=== PATIENT | female | born 1980 | race Caucasian/White ===

== ENCOUNTER 2017-06-18 07:21 | Day surgery (SDC) | payer MEDICAID ==
[~2017-06-18 07:21] MED LIST: Bupivacaine 0.5% 50 ML MDV ONE; Lidocaine 1% with EPINEPHrine 1:100,000 50 ML MDV ONE
[2017-06-18] MEDS ORDERED: Midazolam 1 MG/ML 2 ML SDV ONE (08:34)
[2017-06-18] MEDS ORDERED: fentaNYL 100 MCG/2 ML SDV ONE (08:34)
[2017-06-18] MEDS ORDERED: Propofol 200 MG/20 ML SDV ONE ×2 (08:34→09:15)
[2017-06-18] MEDS ORDERED: Bacitracin Oint 1 GM U/D Packet ONE (09:27)
[2017-06-18] MEDS ORDERED: Dextrose 5%-Lactated Ringers 1,000 ML IV SCH (09:30)
[2017-06-18 11:03] VITALS: BP 127/62
--- NOTE | 2017-06-18 15:08 | OR ---
DATE OF PROCEDURE: 06/18/2017 PREOPERATIVE DIAGNOSIS: 2 cm crown of scalp and 2.5 cm right occipital scalp masses consistent with cysts. POSTOPERATIVE DIAGNOSIS: 2.5 cm crown of scalp and 3 cm right occipital scalp masses. PROCEDURE: Excision of 2.5 cm crown of scalp and 3 cm right occipital scalp masses. SURGEON: Herrera Winchester MD ANESTHESIA: IV anesthesia with monitored anesthesia care. INDICATIONS: This 36-year-old white female has 2 masses in her scalp. One is up in the crown and the other in the right occipital area. She is here to have them excised. I counseled her for excision of these two lesions including risks and alternatives , and she gave her informed consent to proceed. These ultimately were shown to measure 2.5 cm for the crown and 3 cm for the right occipital area. DESCRIPTION OF PROCEDURE: The patient was placed prone on the operating room table. IV anesthesia was administered by the Anesthesia Service. Some small amount of hair was excised from both mass areas. The areas were prepped and draped in the usual sterile fashion. Time-out was held. Lidocaine 1% with epinephrine in a 50:50 mix with 0.5% Marcaine was infiltrated about the crown mass first. An elliptical incision was then made to remove this. It is consistent with a cyst. It measured 2.5 cm in diameter. The incision was closed with a running stitch of 3-0 Prolene. The specimen was sent to Pathology. Next, the right occipital mass was excised. Lidocaine 1% with epinephrine in a 50:50 mix with 0.5% Marcaine was infiltrated about this mass. This mass was then excised using an elliptical incision. The mass was noted to measure 3 cm in diameter. This was also sent to the laboratory. The incision was closed with a running stitch of 3-0 Prolene with an occasional vertical mattress stitch placed to achieve good wound edge approximation. Bacitracin was applied to both incisions. She tolerated the procedure well and was brought to recovery room in good condition. Herrera Winchester MD /[id number] MTDD
== END 2017-06-18 11:17 | disposition home or self-care (01) ==
LOC: JP.SDS 07:21
PROVIDERS: ATTEND Surgery
DX: L72.11 Pilar cyst (principal); Z88.0 Allergy status to penicillin
CPT/HCPCS: 11423; 81025; J2250; J2704; J3010; J7042; 88304

== ENCOUNTER 2019-06-10 09:05 | Inpatient (IN) | payer MEDICAID ==
[2019-06-10] MEDS ORDERED: Sodium Chloride 0.9% 10 ML Syringe FLUSH PRN (12:57)
[2019-06-10] MEDS ORDERED: Acetaminophen 325 MG Tab PO PRN (12:57)
--- NOTE | 2019-06-10 13:08 | PCM.LDHP ---
L&D History of Present Illness - General Date of Service: 06/10/19 (labor) Admit Problem/Dx: Patient Status Order with Admit Dx/Problem 06/10/19 12:57 Patient Status [ADT] Routine Admission Diagnosis/Problem Admission Diagnosis/Problem Source of Information: Patient History Limitations: Reports: No Limitations - History of Present Illness Introduction:: This 38 year old presented in labor. Contractions started last night and slowly have gotten stronger , CE:4/50/0 anterior GBS positive, PCN allergy and clindamycin resistive. ABO O neg, had Rhogam at 29 weeks HIV negative Timing/Duration: Reports: minutes: (3-5) Location, : Reports: Abdomen Quality: Reports: Pressure Severity: Moderate Improves with: Reports: Movement Worsens with: Reports: None Associated Symptoms: Reports: vaginal bleeding - Related Data Allergies/Adverse Reactions: Allergies Allergy/AdvReac Type Severity Reaction Status Date / Time Penicillins Allergy Unknown Cannot Verified 06/14/17 11:07 Remember Home Medications: Home Meds Pnv No.95/Ferrous Fum/Folic AC [ Caplet] 1 tab PO DAILY 05/10/19 [ History] Past Medical History - Past Health History Medical/Surgical History: Denies Medical/Surgical History HEENT History: Reports: Impaired Vision 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 - Infectious Disease History Infectious Disease History: Reports: Chicken Pox - Past Surgical History HEENT Surgical History: Reports: None GI Surgical History: Reports: Colonoscopy, EGD, Hernia, Abdominal Female Surgical History: Reports: D&C Social & Family History - Family History Family Medical History: Noncontributory - Caffeine Use Caffeine Use: Reports: None Other Caffeine Use: occassionally H&P Review of Systems - Review of Systems: Review Of Systems: See Below General: Reports: No Symptoms HEENT: Reports: No Symptoms Pulmonary: Reports: No Symptoms Cardiovascular: Reports: No Symptoms Gastrointestinal: Reports: No Symptoms Genitourinary: Reports: No Symptoms Musculoskeletal: Reports: No Symptoms Skin: Reports: No Symptoms Psychiatric: Reports: No Symptoms Neurological: Reports: No Symptoms Hematologic/Lymphatic: Reports: No Symptoms Immunologic: Reports: No Symptoms L&D Exam - Exam Exam: See Below - Vital Signs Vital Signs: Last Vital Signs Temp 97.8 F 06/10/19 10:05 Pulse 69 06/10/19 10:05 Resp 16 06/10/19 10:05 BP 131/84 06/10/19 10:05 Pulse Ox 97 06/10/19 10:05 Weight: 198 lb - OB Specific Contraction Duration (sec): 50-120 Contraction Frequency (min): 5 Contraction Intensity: Moderate Movement: Active Heart Tones: Present Heart Rate (FHR) Variability: Moderate (6-25 bmp) Presentation: Vertex Estimated Weight: 8 pounds - Mason Score Mason Score Cervix Position: Anterior Mason Score Consistency: Soft Mason Score Effacement: 51-70% Mason Score Dilation: 3-4 cm Mason Score Infant's Station: -1 ,0 Mason Score Total: 10 - Exam General: Alert, Oriented HEENT: PERRLA, Conjunctiva Clear, Mucosa Moist & [place], Pupils Equal Neck: Supple Lungs: Normal Respiratory Effort Cardiovascular: Regular Rate, Regular Rhythm GI/Abdominal Exam: Soft, No Mass Rectal Exam: Normal Exam Genitourinary: Cervical dilitation, Enlarged uterus, Other (large labial varicosities) Back Exam: Normal Inspection Extremities: Normal Inspection, Normal Range of Motion Skin: Warm, Dry Neurological: Cranial Nerves Intact, Reflexes Equal Bilateral Psychiatric: Alert, Normal Affect, Normal Mood - Patient Data Lab Results Last 24 hrs: Laboratory Results - last 24 hr 06/10/19 Range/Units 09:18 Urine Color Yellow Urine Appearance Slightly cloudy Urine pH 7.0 (4.5-8.0) Ur Specific [place] 1.005 L (1.008-1.030) Urine Protein Negative (NEGATIVE) mg/dL Urine Glucose (UA) Normal (NEGATIVE) mg/dL Urine Ketones Negative (NEGATIVE) mg/dL Urine Occult Blood Negative (NEGATIVE) Urine Nitrite Negative (NEGATIVE) Urine Bilirubin Negative (NEGATIVE) Urine Urobilinogen Normal (NORMAL) mg/dL Ur Leukocyte Esterase Small (NEGATIVE) Urine WBC 0-5 (0-5) Ur Epithelial Cells Few Amorphous Sediment Not seen Urine Bacteria Moderate Urine Mucus Not seen - Problem List (1) GBS (group B Streptococcus carrier), +RV culture, currently SNOMED Code(s): 7796770410205, 909849457, 2513686423387 ICD Code: O99.820 - STREPTOCOCCUS B CARRIER STATE COMPLICATING Status: Acute Current Visit: Yes (2) Labor established SNOMED Code(s): 94871215 ICD Code: [id number] - Status: Acute Current Visit: Yes (3) SNOMED Code(s): 56027092 ICD Code: Z34.90 - ENCNTR FOR SUPRVSN OF NORMAL , UNSP, UNSP TRIMESTER Status: Acute Current Visit: Yes Qualifiers: Weeks of gestation: 40 weeks Qualified Code(s): Z3A.40 - 40 weeks gestation of Problem List Initiated/Reviewed/Updated: Yes Orders Last 24hrs: Active Orders 24 hr Category Date Time Status Patient Status [ADT] Routine ADT 06/10/19 12:57 Ordered Antiembolic Devices [RC] .Routine Care 06/10/19 13:01 Ordered Communication Order [RC] ASDIRECTED Care 06/10/19 12:57 Ordered Communication Order [RC] Per Unit Routine Care 06/10/19 13:02 Ordered Communication Order [RC] Per Unit Routine Care 06/10/19 13:02 Ordered Communication Order [RC] Per Unit Routine Care 06/10/19 13:02 Ordered Heart Tones [RC] PER UNIT ROUTINE Care 06/10/19 12:57 Ordered Non Stress Test [RC] Click to Edit Care 06/10/19 12:57 Ordered May Shower [RC] ASDIRECTED Care 06/10/19 12:57 Ordered Nitrous Oxide Delivery [RC] ASDIRECTED Care 06/10/19 13:02 Ordered Notify Provider Vital Signs [RC] PRN Care 06/10/19 12:57 Ordered Notify Provider [RC] PRN Care 06/10/19 12:57 Ordered OB Check [OM.PC] Click to Edit Care 06/10/19 09:12 Ordered Oxygen Therapy [RC] ASDIRECTED Care 06/10/19 13:02 Ordered Pulse Oximetry [RC] ASDIRECTED Care 06/10/19 13:02 Ordered Up ad Ramila [RC] ASDIRECTED Care 06/10/19 12:57 Ordered VTE/DVT Education [RC] Click to Edit Care 06/10/19 13:01 Ordered Verify Patient Consent Obtain [RC] ASDIRECTED Care 06/10/19 13:02 Ordered Vital Signs [RC] PER UNIT ROUTINE Care 06/10/19 12:57 Ordered Vital Signs [RC] PER UNIT ROUTINE Care 06/10/19 13:02 Ordered Regular Diet [DIET] Diet 06/10/19 Dinner Ordered CBC W/O DIFF,HEMOGRAM [HEME] Routine Lab 06/10/19 12:57 Ordered Acetaminophen [Tylenol] Med 06/10/19 12:57 Ordered 650 mg PO Q4H PRN Oxytocin/Normal Saline [Pitocin in NS 20 Units/1,000 ML Med 06/10/19 13:02 Ordered ] 20 unit in 1,000 ml IV ONETIME Sodium Chloride 0.9% [Saline Flush] Med 06/10/19 12:57 Ordered 10 ml FLUSH ASDIRECTED PRN DVT/VTE Prophylaxis Reflex [OM.PC] Routine Oth 06/10/19 12:57 Ordered Saline Lock Insert [OM.PC] Routine Oth 06/10/19 12:57 Ordered Resuscitation Status Routine Resus Stat 06/10/19 12:57 Ordered Medication Orders Acetaminophen (Tylenol) 650 mg PO Q4H PRN PRN Reason: Pain (Mild 1-3) and fever Oxytocin/Sodium Chloride (Pitocin In Ns 20 Units/1,000 Ml) 20 unit in 1,000 mls @ 999 mls/hr IV ONETIME ONE; Protocol Stop: 06/10/19 14:02 Sodium Chloride (Saline Flush) 10 ml FLUSH ASDIRECTED PRN PRN Reason: Keep Vein Open Assessment/Plan Comment:: 06/10/19 38 yr old 40 1/, labor gbs positive, treating wants nitrous for pain management Plan for vaginal delivery later today
[2019-06-10] MEDS ORDERED: Terbutaline 1 MG/ML SDV ONE (15:01)
[2019-06-10] MEDS ORDERED: Terbutaline 1 MG/ML SDV SUBCUT ONE (15:04)
--- NOTE | 2019-06-10 15:19 | PCM.PNLD ---
Labor Progress Note - VS & Meds Vital Signs: Last Vital Signs Temp 97.8 F 06/10/19 10:05 Pulse 69 06/10/19 10:05 Resp 16 06/10/19 10:05 BP 131/84 06/10/19 10:05 Pulse Ox 97 06/10/19 10:05 Active Medications: Current Medications Acetaminophen (Tylenol) 650 mg PO Q4H PRN PRN Reason: Pain (Mild 1-3) and fever Oxytocin/Sodium Chloride (Pitocin In Ns 20 Units/1,000 Ml) 20 unit in 1,000 mls @ 999 mls/hr IV ASDIRECTED ESAU; Protocol Vancomycin HCl 1 gm/ Sodium (Chloride) 250 mls @ 166.667 mls/hr IV Q12H ESAU Last Admin: 06/10/19 13:25 Dose: 166.667 mls/hr Sodium Chloride (Saline Flush) 10 ml FLUSH ASDIRECTED PRN PRN Reason: Keep Vein Open Discontinued Medications Terbutaline Sulfate (Brethine) Confirm Administered Dose 1 mg .ROUTE .STK-MED ONE Stop: 06/10/19 15:02 Terbutaline Sulfate (Brethine) 0.4 mg SUBCUT ONETIME ONE Stop: 06/10/19 15:05 - Uterine Contractions Uterine Monitoring Mode: External [place] Contraction Frequency (min): 1-9 Contraction Duration (sec): 60-90 Contraction Intensity: Moderate Uterine Resting Tone: Soft - Monitoring Heart Rate (FHR) Variability: Moderate (6-25 bmp) - Vaginal Exam Dilation (cm): 4-5 Effacement (Percent): 50 Station: 0 Cervical Position: Midposition Sterile Vaginal Exam Performed By: Lynda Briseno Vaginal Exam Comment: AROM, thick meconium and no head felt, US showed transverse - Labor Progress (Free Text) Labor Progress: Bulging bag in vaginal vault, Thick meconium, unable to feel head. US showed transverse lie. C section called, OR crew notified.
[2019-06-10] MEDS ORDERED: Propofol 200 MG/20 ML SDV ONE (15:35)
[2019-06-10] MEDS ORDERED: Succinylcholine 200 MG/10 ML MDV ONE (15:35)
[2019-06-10] MEDS ORDERED: Oxytocin 10 Units/1 ML SDV ONE (15:41)
[2019-06-10] MEDS ORDERED: Lactated Ringers 1,000 ML ONE (15:41)
[2019-06-10] MEDS ORDERED: Phenylephrine 1% 10 MG/ML SDV ONE (15:41)
[2019-06-10] MEDS ORDERED: Ondansetron 4 MG/2 ML SDV ONE (15:41)
[2019-06-10] MEDS ORDERED: Glycopyrrolate 0.2 MG/ML 5 ML MDV ONE (15:41)
[2019-06-10] MEDS ORDERED: fentaNYL 250 MCG/5 ML SDV ONE (15:41)
[2019-06-10] MEDS ORDERED: Neostigmine Methylsulfate 1 MG/ML 5 ML Syringe ONE (15:41)
[2019-06-10] MEDS ORDERED: Dexamethasone 4 MG/ML SDV ONE (15:41)
[2019-06-10] MEDS ORDERED: Rocuronium 50 MG/5 ML Vial ONE (15:41)
[2019-06-10] MEDS ORDERED: Midazolam 1 MG/ML 2 ML SDV ONE (15:42)
[2019-06-10] MEDS ORDERED: Oxytocin 10 Units/1 ML SDV IM ONE (16:05)
--- NOTE | 2019-06-10 16:23 | US ---
OB Ltd 1 or More Fetus CLINICAL HISTORY: Ruptured membranes, placental presentation FINDINGS: Real-time transabdominal images are obtained through the pelvis. There is a intrauterine in transverse lie head to maternal right. The placenta is lateral internal left and through the cervical os. There is no significant motion. heart rate is 150 bpm IMPRESSION: Viable intrauterine in transverse lie with head maternal right Placenta left lateral inferior the cervical os
[2019-06-10] MEDS ORDERED: diphenhydrAMINE 50 MG/ML SDV IVPUSH PRN (16:30)
[2019-06-10] MEDS ORDERED: Witch Hazel Medicated Pads 100/Jar TOP PRN (16:30)
[2019-06-10] MEDS ORDERED: diphenhydrAMINE 50 MG/ML SDV IV PRN (16:30)
[2019-06-10] MEDS ORDERED: Ondansetron 4 MG Tab.DIS PO PRN (16:30)
[2019-06-10] MEDS ORDERED: Hydrocortisone 2.5% Crm 30 GM Tube TOP PRN (16:30)
[2019-06-10] MEDS ORDERED: Docusate Sodium 100 MG Cap PO PRN (16:30)
[2019-06-10] MEDS ORDERED: Bisacodyl 10 MG Supp RECTAL PRN (16:30)
[2019-06-10] MEDS ORDERED: ePHEDrine 50 MG/ML SDV IVPUSH PRN (16:30)
[2019-06-10] MEDS ORDERED: Naloxone 0.4 MG/ML SDV IVPUSH PRN (16:30)
[2019-06-10] MEDS: Ketorolac 30 MG/ML SDV IVPUSH SCH (16:59)
[2019-06-10] MEDS ORDERED: hydrOXYzine HCl 100 MG/2 ML SDV IM ONE (17:07)
--- NOTE | 2019-06-10 17:58 | PN ---
DATE OF SERVICE: 06/10/2019 SUBJECTIVE: The patient doing very well today. Pain is well controlled. No nausea, vomiting, shortness of breath, or chest pain. OBJECTIVE: VITAL SIGNS: Stable. CARDIOVASCULAR: Regular rhythm and rate. RESPIRATORY: Lungs clear to auscultation bilaterally. ABDOMEN: Incision healing well. ASSESSMENT: Status post section. PLAN: The patient will be discharged today. Please see discharge summary for further details. Ike Corbin MD /[id number]
[2019-06-10] MEDS: Acetaminophen/oxyCODONE 325-5 MG Tab PO PRN (18:06)
--- NOTE | 2019-06-10 18:25 | DISCH ---
SUMMARY OF HOSPITAL COURSE: A 38-year-old female, who underwent a section due to breeching of the baby. The patient did well postoperatively. On postoperative day #1, her pain is well controlled. She had no nausea, vomiting, shortness of breath, or chest pain. Tolerating diet. The patient continued to advance at the time of discharge and is having bowel movements. The pain is well controlled. She has no signs, symptoms, or complications. FOLLOWUP: Surgery in 7 to 14 days. ACTIVITY: No lifting greater than 30 pounds x30 days. DISCHARGE MEDICATIONS: Please see MAR, but include [place] for pain.
[2019-06-10] MEDS: fentaNYL 100 MCG/2 ML SDV IVPUSH PRN ×3 (19:29→23:34)
[2019-06-10] MEDS: Sodium Chloride 0.9% 1,000 ML IV SCH (19:30)
[2019-06-11] MEDS: Ketorolac 30 MG/ML SDV IVPUSH SCH ×2 (00:39→08:43)
[2019-06-11] MEDS: ceFAZolin 2 GM in Sodium Chloride 0.9% 50 ML IV SCH ×2 (00:42→08:43)
[2019-06-11] MEDS: fentaNYL 100 MCG/2 ML SDV IVPUSH PRN ×6 (02:56→21:47)
[2019-06-11] MEDS: Sodium Chloride 0.9% 1,000 ML IV SCH (06:04)
[2019-06-11] MEDS: Acetaminophen/oxyCODONE 325-5 MG Tab PO PRN ×6 (08:42→23:47)
[2019-06-11] MEDS: Prenatal Multivitamin with Calcium/Folic Acid/Iron Tab PO SCH (08:43)
--- NOTE | 2019-06-11 10:37 | PN ---
DATE OF SERVICE: 06/11/2019 SUBJECTIVE: The patient is doing well today. Pain is still an issue but improving. No nausea, vomiting, shortness of breath, or chest pain. Tolerating diet. OBJECTIVE: VITAL SIGNS: Stable. CARDIOVASCULAR: Regular rhythm and rate. RESPIRATORY: Lungs are clear to auscultation bilaterally. ABDOMEN: Incision is healing well. ASSESSMENT: Status post section. PLAN: The patient will work on activity and diet today. We will change her pain management plan to disperse her Percocet at more even rate. As far as her hemoglobin, was lowered due to the ; however, she is not having any vaginal bleeding at this time and is doing quite well. Ike Corbin MD /[id number]
[2019-06-11] MEDS: Ibuprofen 800 MG Tab PO PRN ×2 (15:10→23:01)
[2019-06-11] MEDS ORDERED: Ibuprofen 800 MG Tab PO PRN (17:00)
[2019-06-12] MEDS: Acetaminophen/oxyCODONE 325-5 MG Tab PO PRN ×9 (01:43→21:34)
[2019-06-12] MEDS ORDERED: Ibuprofen 800 MG Tab PO PRN (07:00)
[2019-06-12] MEDS: Prenatal Multivitamin with Calcium/Folic Acid/Iron Tab PO SCH (08:07)
--- NOTE | 2019-06-12 09:46 | PN ---
DATE OF SERVICE: 06/12/2019 SUBJECTIVE: The patient continues to improve. Pain is improved. No nausea, vomiting, shortness of breath, or chest pain. OBJECTIVE: VITAL SIGNS: Stable. CARDIOVASCULAR: Regular rhythm and rate. RESPIRATORY: Lungs are clear to auscultation bilaterally. ABDOMEN: Incision is healing well. ASSESSMENT: Status post section. PLAN: We will increase diet and activity today and anticipate discharge in the next 24 hours. No vaginal bleeding reported. Continue on with same plan. Ike Corbin MD /[id number]
[2019-06-12] MEDS: Ibuprofen 800 MG Tab PO PRN ×2 (13:33→21:14)
[2019-06-12] MEDS: Magnesium Hydroxide 400 MG/5 ML Susp 30 ML Cup PO PRN (13:40)
[2019-06-13] MEDS: Acetaminophen/oxyCODONE 325-5 MG Tab PO PRN ×4 (00:24→07:49)
[2019-06-13] MEDS: Ibuprofen 800 MG Tab PO PRN (05:10)
[2019-06-13] MEDS: Magnesium Hydroxide 400 MG/5 ML Susp 30 ML Cup PO PRN (05:11)
--- NOTE | 2019-06-13 08:58 | PN ---
DATE OF SERVICE: 06/13/2019 SUBJECTIVE: The patient is doing very well. Pain is well controlled. No nausea, vomiting, shortness of breath, or chest pain. OBJECTIVE: VITAL SIGNS: Stable. CARDIOVASCULAR: Regular rate. RESPIRATORY: Lungs are clear to auscultation bilaterally. ABDOMEN: Bowel sounds positive. Incision healing well. ASSESSMENT: Status post section. PLAN: The patient will be discharged today. Please see discharge summary for further details. Ike Corbin MD /[id number]
--- NOTE | 2019-06-13 09:01 | DISCH ---
SUMMARY OF HOSPITAL COURSE: This is a pleasant 38-year-old female who underwent an emergent due to transposition of the baby . She did quite well postoperatively. Her pain continues to be an issue, but, however, it is controlled with Percocet. FOLLOWUP: With Surgery in 7 to 14 days. CONSULTATIONS: Additional consultations during this hospitalization, none. COMPLICATIONS: None. DISCHARGE MEDICATIONS: Please see MAR, but include ibuprofen and Percocet for pain.
[2019-06-13 09:19] VITALS: BP 110/57; PULSE 83
[2019-06-13] MEDS: Prenatal Multivitamin with Calcium/Folic Acid/Iron Tab PO SCH (11:01)
--- NOTE | 2019-06-27 12:53 | OR ---
DATE OF PROCEDURE: 06/10/2019 SURGEON: Ike Corbin MD PROCEDURE: section. PREOPERATIVE DIAGNOSIS: Requirement for emergent . POSTOPERATIVE DIAGNOSIS: Requirement for emergent . TRUCK LOADER AND UNLOADER: Lynda Briseno CNM. ANESTHESIA: Spinal. RISKS: Risks, benefits, alternatives, and limitations including, but not limited to infection; bleeding; injury to baby, bowel, or bladder; and other risks not listed here. PROCEDURE IN DETAIL: The patient was placed in supine position. A Pfannenstiel incision was made approximately 2 fingerbreadths above the pubic symphysis. This was carried down with electrocautery, down to the fascia which was opened also with electrocautery. Metzenbaum scissors were used to open the perineum and a muscle-sparing technique was used. The bladder was identified and deflected anteriorly. This was protected with a bladder blade during the remainder of the surgery. A Bernadine clamp was used to dissect the uterus. This was then opened for the bandage scissors. The baby was delivered without difficulty. Pitocin was given. The placenta was delivered without difficulty. The uterus was closed with 3 layers of running #1 Vicryl suture in a locking fashion after the uterus was inspected for any abnormalities. This was then placed back into the abdomen after irrigation. The rectus muscles were reapproximated. The fascia was then closed with #1 Vicryl in running suture x2. This was also irrigated. Subcutaneous tissues were approximated. Skin was closed with 4-0 Prolene and Dermabond was applied. The patient tolerated the procedure well. Ike Corbin MD /[id number]
== END 2019-06-13 11:59 | disposition home or self-care (01) | DRG 788 ==
LOC: JP.OBCHECK 09:05 → JP.OB 12:44 → OBSVTOIN 15:57 → JP.MS 15:57
PROVIDERS: ADMIT Nurse Practitioner Family; ATTEND Nurse Practitioner Family
PROC: 10D00Z1 Extraction of Products of Conception, Low, Open Approach (ICD-10-PCS; principal; 2019-06-10)
PROC: 10907ZC Drainage of Amniotic Fluid, Therapeutic from Products of Conception, Via Natural or Artificial Opening (ICD-10-PCS; 2019-06-10)
PROC: 3E0234Z Introduction of Serum, Toxoid and Vaccine into Muscle, Percutaneous Approach (ICD-10-PCS; 2019-06-11)
DX: O99.824 Streptococcus B carrier state complicating childbirth (principal); Z37.0 Single live birth; O77.0 Labor and delivery complicated by meconium in amniotic fluid; O32.2XX0 Maternal care for transverse and oblique lie, not applicable or unspecified; O32.1XX0 Maternal care for breech presentation, not applicable or unspecified; O26.893 Other specified pregnancy related conditions, third trimester; Z67.41 Type O blood, Rh negative; Z3A.40 40 weeks gestation of pregnancy; Z88.0 Allergy status to penicillin
CPT/HCPCS: 36415; 36430; 59409; 76815; 76815-26; 80048; 81001; 82553; 84484; 85027; 85460; 86850; 86900; 86901; 88307; 99211; A9270-GY; J0330; J0690; J1100; J1885; J2250; J2370; J2405; J2590; J2704; J2710; J2790; J3010; J3105; J3370; J3410; J3490; J7030; J7050; J7120

== ENCOUNTER 2019-06-14 23:32 | Emergency (ER) | payer MEDICAID ==
[2019-06-15 00:16] VITALS: BP 148/81; PULSE 93
--- NOTE | 2019-06-15 00:50 | EDM.PDOC ---
ED HPI GENERAL MEDICAL PROBLEM - General Chief Complaint: Abdominal Pain Stated Complaint: FEVER,ABDOMINAL PAIN Time Seen by Provider: 06/15/19 00:20 Source of Information: Reports: Patient History Limitations: Reports: No Limitations - History of Present Illness INITIAL COMMENTS - FREE TEXT/NARRATIVE: 38-year-old female underwent a 3 days ago, just got discharged from the hospital and yesterday felt better but today was having increased abdominal pain. She took her temperature and felt she was running a low-grade fever so called the OB department and they recommended she get checked out. She also has pain when her bladder is full, its her relief and decreased pain to empty her bladder. She has no inflammation or redness of the incision. Onset: Unknown/Unsure Associated Symptoms: Denies: Confusion, Chest Pain, Cough, Malaise Treatments DEAN: Reports: NSAIDS Bilateral Middle Abdomen Pain Score (Numeric/FACES): 4 - Related Data Allergies Allergy/AdvReac Type Severity Reaction Status Date / Time Penicillins Allergy Unknown Cannot Verified 06/14/17 11:07 Remember Home Meds: Home Meds Pnv No.95/Ferrous Fum/Folic AC [ Caplet] 1 tab PO DAILY 05/10/19 [ History] oxyCODONE HCl/Acetaminophen [Percocet 10-325 mg Tablet] 1 each PO DAILY [History] Past Medical History - Past Health History Medical/Surgical History: Denies Medical/Surgical History HEENT History: Reports: Impaired Vision 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 - Infectious Disease History Infectious Disease History: Reports: Chicken Pox - Past Surgical History HEENT Surgical History: Reports: None GI Surgical History: Reports: Colonoscopy, EGD, Hernia, Abdominal Other GI Surgeries/Procedures: exploratory laprascopy Female Surgical History: Reports: Section, D&C Social & Family History - Family History Family Medical History: Noncontributory - Tobacco Use Smoking Status *Q: Never Smoker - Caffeine Use Caffeine Use: Reports: None Other Caffeine Use: occassionally - Recreational Drug Use Recreational Drug Use: No ED ROS GENERAL - Review of Systems Review Of Systems: See Below Constitutional: Reports: Fever, Chills, Malaise HEENT: Reports: No Symptoms Respiratory: Denies: Shortness of Breath Cardiovascular: Denies: Chest Pain GI/Abdominal: Reports: Abdominal Pain (Especially lower abdomen) : Reports: Other (Pain with full bladder) Skin: Reports: No Symptoms ED EXAM, GI/ABD - Physical Exam Exam: See Below Exam Limited By: Intoxication General Appearance: Alert, No Apparent Distress Eyes: Bilateral: Normal Appearance Respiratory/Chest: No Respiratory Distress, Lungs Clear Cardiovascular: Regular Rate, Rhythm Extremities: Normal Inspection Course - Vital Signs Last Recorded V/S: Last Vital Signs Temp 98.0 F 06/15/19 00:12 Pulse 93 06/15/19 00:12 Resp 16 06/15/19 00:12 BP 148/81 H 06/15/19 00:12 Pulse Ox 96 06/15/19 00:12 - Orders/Labs/Meds Labs: Laboratory Tests 06/15/19 Range/Units 00:20 Urine Color Yellow Urine Appearance Clear Urine pH 8.0 (4.5-8.0) Ur Specific [place] 1.010 (1.008-1.030) Urine Protein Negative (NEGATIVE) mg/dL Urine Glucose (UA) Normal (NEGATIVE) mg/dL Urine Ketones Negative (NEGATIVE) mg/dL Urine Occult Blood Trace (NEGATIVE) Urine Nitrite Negative (NEGATIVE) Urine Bilirubin Negative (NEGATIVE) Urine Urobilinogen Normal (NORMAL) mg/dL Ur Leukocyte Esterase Negative (NEGATIVE) Urine RBC 0-5 (0-5) Urine WBC 0-5 (0-5) Ur Epithelial Cells Rare Amorphous Sediment Not seen Urine Bacteria Rare Urine Mucus Not seen - Re-Assessments/Exams Free Text/Narrative Re-Assessment/Exam: 06/15/19 00:52 A UA was obtained by clean catch and was totally normal. Patient was afebrile and fairly comfortable at this time so no further workup is needed. It's likely too early for a postsurgical infection or abscess. It's more likely she was just too active yesterday and is struggling with some discomfort from activity. She should continue her current medications and return if she develops a fever or increased pain, redness or drainage from her incision. Departure - Departure Time of Disposition: 00:57 Disposition: Home, Self-Care 01 Condition: Good Clinical Impression: Abdominal pain Qualifiers: Abdominal location: lower abdomen, unspecified Qualified Code(s): R10.30 - Lower abdominal pain, unspecified - Discharge Information Instructions: Abdominal Pain, Adult, [id number] Referrals: Lynda Briseno CNM [Primary Care Provider] - Forms: ED Department Discharge Care Plan Goals: Continue your pain medications, increase activity as tolerated and return if you develop or persistent fever, redness such her surgical incision or drainage , or nausea and vomiting.
== END 2019-06-15 00:57 | disposition home or self-care (01) ==
LOC: JP.ED 23:32
DX: O99.89 Other specified diseases and conditions complicating pregnancy, childbirth and the puerperium (principal); R10.30 Lower abdominal pain, unspecified; Z88.0 Allergy status to penicillin; Z79.899 Other long term (current) drug therapy
CPT/HCPCS: 81001; 99284

== ENCOUNTER 2020-09-06 06:52 | Day surgery (SDC) | payer MEDICAID ==
[2020-09-06] MEDS ORDERED: Sodium Chloride 0.9% 1,000 ML IV SCH (07:30)
[2020-09-06] MEDS ORDERED: Propofol 200 MG/20 ML SDV ONE ×2 (08:14→09:28)
[2020-09-06] MEDS ORDERED: fentaNYL 100 MCG/2 ML SDV ONE (08:15)
[2020-09-06] MEDS ORDERED: Midazolam 1 MG/ML 2 ML SDV ONE (08:15)
[2020-09-06] MEDS ORDERED: Lidocaine 1% with EPINEPHrine 1:100,000 50 ML MDV ONE (08:21)
[2020-09-06] MEDS ORDERED: Lidocaine 1% w/EPINEPHrine 50 ML, Sodium Bicarbonate 5 MEQ in Sodium Chloride 0.9% 950 ML INJECT ONE (08:30)
[2020-09-06] MEDS ORDERED: Sodium Chloride 0.9% 10 ML ONE (09:16)
[2020-09-06] MEDS ORDERED: Sodium Tetradecyl Sulfate 1% 20 MG/2 ML SDV ONE (09:16)
[2020-09-06] MEDS ORDERED: Sodium Chloride 0.9% 10 ML SDV ONE (09:41)
[2020-09-06 11:17] VITALS: PULSE 57
[2020-09-06 11:18] VITALS: BP 99/67
--- NOTE | 2020-09-07 12:01 | OR ---
DATE OF PROCEDURE: 09/06/2020 SURGEON: Ike Corbin MD PROCEDURE: 1. Radiofrequency ablation of left anterior accessory vein. 2. Radiofrequency ablation of right greater saphenous vein. 3. Sclerotherapy of left leg, multiple. 4. Sclerotherapy of right leg, multiple. 5. Compression wrap, left leg (13223). 6. Compression wrap, right leg (80828). COMPLICATIONS: None. FELT TIPPING MACHINE TENDER: None. ANESTHETIC: MAC. RISKS: Risks, benefits, alternatives, and limitations including, but not limited to, infection, bleeding, and DVT formation. PREOPERATIVE DIAGNOSIS: Venous insufficiency with inflammation and pain. POSTOPERATIVE DIAGNOSIS: Venous insufficiency with inflammation and pain. DESCRIPTION OF PROCEDURE: The patient was placed in supine position. The left anterior accessory vein was accessed at the most distal location. This was anesthetized with 1% lidocaine. Introduced and advanced a 21-gauge needle and exchanged for a 35,000 sheath. The RFA probe was advanced to the most proximal area, which was greater than 3 cm from the saphenofemoral junction. Tumescent fluid injected in 1 cm jacket around this and verified a second and a third time. Direct even pressure was held as the sheath was deployed x2 proximally and distally and x1 in all other segments. The sheath and device were then removed, and Dermabond was applied. The right leg was then performed in same manner, same fashion, same technique, and the same sequence using the same equipment except for the greater saphenous vein. Dermabond was applied for both. Sclerotherapy was then performed in left and right legs using 0.33% sodium tetradecyl. This was always drawn back to ensure intravascular injection only. No more than 2 mL was injected in 1 location. Two-layer, 2-stage compression wrap was performed in a figure-of- eight in a [id number] gradient. The patient tolerated the procedure well. Ike Corbin MD /[id number]
== END 2020-09-06 11:20 | disposition home or self-care (01) ==
LOC: JP.SDS 06:52
PROVIDERS: ATTEND Surgery
DX: I87.2 Venous insufficiency (chronic) (peripheral) (principal); Z88.0 Allergy status to penicillin
CPT/HCPCS: 36470; 36475; 81025; J1642; J2250; J2704; J3010; J7030; J3490